=== PATIENT | male | born 1940 | race Caucasian/White ===

== ENCOUNTER 2018-02-17 13:51 | Emergency (ER) | payer OTHER ==
[~2018-02-17] VITALS: Ht 170.2 cm; Wt 76.7 kg
[~2018-02-17 13:51] MED LIST: ALLEGRA ALLERG180 M1 PO; ALTACE10 M2 PO; AMLODIPINE BESYL5 M1 PO; ASPIRIN EC325 M2 PO; ATROVENT15 ML NASB; CLONIDINE HCL0.2 M1 PO; FENOFIBRATE134 M1 PO; FLOMAX0.4 M1 PO; FLONASE ALLERG9.9 ML NASB; HYDRALAZINE HCL50 M1 PO; IRON SUPPLEMEN325 MG PO; LASIX40 M1 PO; LIPITOR80 M1 PO; METOLAZONE2.5 M1 PO; MUCINEX600 M1 PO; MULTI-DAY VITA1 EACH PO; NEURONTIN300 M1 PO; POTASSIUM CHLO20 ME2 PO; PRESERVISION A1 EAC1 PO; RAMIPRIL10 M1 PO; SINGULAIR10 M1 PO; SPIRONOLACTONE50 M1 PO; SYMBICORT 16010.2 GM INH; TENORMIN25 M1 PO; TERAZOSIN HCL2 M1 PO; TRAMADOL HCL50 M1 PO; TYLENOL325 M1 PO; VITAMIN D3400 UNI1 PO; ZANTAC150 M1 PO
[2018-02-17 13:58] VITALS: BP 135/71
--- NOTE | 2018-02-17 16:07 | ED NECK/BACK PAIN COMPLAINT ---
History of Present Illness General Chief Complaint: General Adult Stated Complaint: ?STROKE Source: patient, old records Exam Limitations: no limitations Vital Signs & Intake/Output Vital Signs & Intake/Output Vital Signs Date Time Temp Pulse Resp B/P B/P Pulse O2 O2 Flow FiO2 Mean Ox Delivery Rate 02/17 1358 96.8 57 18 135/71 98 Room Air Allergies Coded Allergies: NO KNOWN ALLERGIES (07/18/16) Reconcile Medications Acetaminophen (Tylenol) 325 MG TABLET 2 TAB PO Q3P PRN pain (Reported) Amlodipine Besylate 5 MG TABLET 1 TAB PO DAILY high blood pressure Aspirin (Ecotrin*) 325 MG TABLET.DR 1 TAB PO DAILY HEART/BLOOD (Reported) Atorvastatin Calcium (Lipitor) 80 MG TABLET 1 TAB PO DAILY CHOLESTEROL ( Reported) Budesonide/Formoterol Fumarate (Symbicort 160-4.5 Mcg Inhaler) 10.2 GM HFA.AER.AD 2 PUF INH BID BREATHING PROBLEMS (Reported) Cholecalciferol (Vitamin D3) (Vitamin D3) 400 UNIT TABLET 1 TAB PO DAILY SUPPLEMENT (Reported) Fenofibrate,Micronized (Fenofibrate) 134 MG CAPSULE 1 CAP PO DAILY CHOLESTEROL /TRIGLYCERIDES (Reported) Ferrous Sulfate (Iron Supplement) 325 MG TABLET 2 TAB PO DAILY SUPPLEMENT ( Reported) Fexofenadine HCl (Sirisha Allergy) 180 MG TABLET 1 TAB PO QPM ALLERGIES ( Reported) Guaifenesin (Mucinex) 600 MG TAB.ER.12H 1 TAB PO BID MUCUS (Reported) Hydralazine HCl 50 MG TABLET 1 TAB PO TID Hypertension (Reported) Take 1 pill at 6am, 1 pill at 2pm, 1 pill at 10pm Montelukast Sodium (Singulair) 10 MG TABLET 1 TAB PO DAILY ALLERGIES ( Reported) Multivitamin (Multi-Day Vitamins) 1 EACH TABLET 1 TAB PO DAILY SUPPLEMENT ( Reported) Ranitidine HCl (Zantac) 150 MG TABLET 1 TAB PO Q12H GI (Reported) Tamsulosin HCl (Flomax) 0.4 MG CAP.ER.24H 1 CAP PO QHS BPH (Reported) Tramadol HCl 50 MG TABLET 1 TAB PO BID PAIN (Reported) Vit C/E/Zn/Coppr/Lutein/Zeaxan (Preservision Areds 2 Softgel) 1 EACH CAPSULE 1 CAP PO BID SUPPLEMENT (Reported) Triage Note: PT TO ER SENT BY DR. GARCIA FOR EVAL OF CVA V. PINCHED NERVE. WOKE UP MONDAY AM W/ LEFT ARM WEAKNESS/NUMBNESS. ALL NEUROS INTACT, DECREASED STRENGTH TO LEFT ARM. NO PALMAR DRIFT. Triage Nurses Notes Reviewed? yes HPI: 77M PMH lumbar radiculopathy w/o cord compression and w/ prior lumbar surgery, CAD s/p stenting x 2, history of cervical surgery, with 3 days of left arm paresthesia. Woke up 3 days ago and felt paresthesia all along left arm and hand, and has persisted since. Denies weakness, has full ROM without pain. Denies symptoms to any other extremities. Denies headache, facial weakness, dysarthria, ataxia, imbalance, headache, or any other neurological symptom. Past History Travel History Traveled to [place] past 21 day No Medical History Any Pertinent Medical History? 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 Hx Contributory? No Review of Systems Review of Systems Constitutional: Reports: no symptoms. Eyes: Reports: no symptoms. Ears, Nose, Throat, Mouth: Reports: no symptoms. Respiratory: Reports: no symptoms. Cardiovascular: Reports: no symptoms. Gastrointestinal/Abdominal: Reports: no symptoms. Musculoskeletal: Reports: no symptoms. Skin: Reports: no symptoms. Neurological/Psychological: Reports: no symptoms. All Other Systems: Reviewed and Negative Physical Exam Physical Exam General Appearance: well developed/nourished, no apparent distress Head: atraumatic Eyes: Bilateral: normal appearance, PERRL, EOMI. Ears, Nose, Throat, Mouth: hearing grossly normal, moist mucous membrane Neck: normal inspection, supple, full range of motion, left paraspinal muscle tenderness Respiratory: normal breath sounds Cardiovascular: regular rate/rhythm Gastrointestinal: soft, non-tender Back: normal inspection Extremities: normal range of motion Neurologic/Psych: awake, alert, oriented x 3, normal mood/affect Skin: intact, normal color, warm/dry Comments: Sensory intact, 2+ peripheral pulses, strength 5/5 in all extremities Core Measures CVA/TIA Diagnosis: No Progress Differential Diagnosis: AAA, aortic dissection, C spine injury, carotid dissection, cauda equina syn, herniated disc, myofascial strain, pyelo/UTI, sciatica, spinal cord inj, thoracic outlet syn, T/L spine injury, ureterolithiasis Plan of Care: Patient has outpatient MRI scheduled as well as appointment with Dr. Zimmerman. With excellent follow up, will discharge patient home and educate to return if symptoms worsen. No CT or medications indicated at this time, as low suspicion for cord compression given intact motor and sensory function. Departure Departure Disposition: HOME OR SELF CARE Condition: Stable Clinical Impression Primary Impression: Cervical radiculopathy Referrals: Elsie MCCORMACK,Desean Ta MD,Nuha (PCP/Family) Additional Instructions: Follow up with Dr. Zimmerman on Monday. You can use warm compresses for your neck. If any new or worsening symptoms return to ER. Departure Forms: Customer Survey General Discharge Information
== END 2018-02-17 16:25 ==
LOC: ERH 13:51
DX: M54.12 Radiculopathy, cervical region (principal)